=== PATIENT | female | born 1955 | race Asian ===

== ENCOUNTER 2017-09-07 12:25 | Day surgery (SDC) | payer OTHER ==
[2017-09-07] MEDS ORDERED: MIDAZOLAM 1 MG/ML 2 ML INJ (14:24)
[2017-09-07] MEDS ORDERED: LIDOCAINE 2% (SDV) 5 ML INJ (14:24)
[2017-09-07] MEDS ORDERED: PROPOFOL 40 ML (14:24)
== END 2017-09-07 16:10 | disposition home or self-care (01) ==
LOC: GIL 12:25
DX: Z12.11 Encounter for screening for malignant neoplasm of colon (principal); K57.90 Diverticulosis of intestine, part unspecified, without perforation or abscess without bleeding; K64.8 Other hemorrhoids
CPT/HCPCS: 45378